=== PATIENT | female | born 1970 | race Caucasian/White ===

== ENCOUNTER 2019-05-08 13:38 | Day surgery (SDC) | payer BC ==
[~2019-05-08] VITALS: Ht 158.8 cm; Wt 73.1 kg
[~2019-05-08 13:38] MED LIST: AMITRIPTYLINE H10 M1 PO; GABAPENTIN100 M1 PO; IBUPROFEN200 M1 PO; NORCO 325 MG-51 TAB PO; TRAMADOL50 MG PO
[2019-05-08] MEDS ORDERED: MACROBID 1100 MG/CAP PO (14:15)
[2019-05-08] MEDS ORDERED: WELLBUTRIN XL300 M1 PO (14:16)
[2019-05-08] MEDS ORDERED: CLARITIN 1010 MG/TAB PO (14:17)
[2019-05-08 14:18] VITALS: BP 105/70; PULSE 87; TEMP 98
[2019-05-08 15:00] VITALS: BP 107/61; PULSE 86; TEMP 97.7
[2019-05-08 15:15] VITALS: BP 105/49; PULSE 73
[2019-05-08 15:30] VITALS: BP 91/46; PULSE 68
[2019-05-08 15:45] VITALS: BP 100/48; PULSE 72
--- NOTE | 2019-05-08 15:52 | NUR ---
PT RETURNED FROM ENDO SUITE PER CART INTO BAY #3. A/OX3, AMBULATED WITH MINIMAL ASSIST BACK INTO ENDO CHAIR. LUNGS CLEAR, HRR AND STRONG. BOWEL SOUNDS PRESENT, WATER OFFERED, , HANH AT BEDSIDE. CALL LIGHT IN REACH, WILL CONT TO MONITOR.
--- NOTE | 2019-05-08 15:58 | NUR ---
PT REQUESTS CHOCOLATE PUDDING AND APPLE JUICE. DENIES PAIN, NAUSEA OR VOMITING. WILL MONITOR.
--- NOTE | 2019-05-08 16:13 | NUR ---
PT TOLERATING FOOD AND FLUIDS WITHOUT C/O PAIN OR NAUSEA. TALKING WITH . WILL MONITOR.
--- NOTE | 2019-05-08 16:15 | NUR ---
PT DISCHARGE INSTRUCTIONS GIVEN, PT VOICES UNDERSTANDING. PT DISCHARGED PER FAMILY VEHICLE, , HANH SOSA.
== END 2019-05-08 16:21 | disposition home or self-care (01) ==
LOC: SDCO 13:38
DX: K63.89 Other specified diseases of intestine (principal); F41.9 Anxiety disorder, unspecified; K59.00 Constipation, unspecified; F32.9 Major depressive disorder, single episode, unspecified; G43.909 Migraine, unspecified, not intractable, without status migrainosus; Z88.1 Allergy status to other antibiotic agents; Z88.2 Allergy status to sulfonamides
CPT/HCPCS: J2250; J2405; J3010

== ENCOUNTER 2019-05-12 13:44 | Day surgery (SDC) | payer BC ==
[~2019-05-12] VITALS: Ht 160 cm; Wt 74.8 kg
[~2019-05-12 13:44] MED LIST changes: +CLARITIN 1010 MG/TAB PO; +MACROBID 1100 MG/CAP PO; +WELLBUTRIN XL300 M1 PO
[2019-05-12 14:08] VITALS: BP 107/52; PULSE 79; TEMP 98.2
[2019-05-12 15:30] VITALS: BP 107/54; PULSE 80; TEMP 98.2
[2019-05-12 15:45] VITALS: BP 104/83; PULSE 76
[2019-05-12 15:50] VITALS: BP 101/68; PULSE 74
== END 2019-05-12 16:16 | disposition home or self-care (01) ==
LOC: SDCO 13:44
DX: K90.0 Celiac disease (principal); R19.7 Diarrhea, unspecified; F41.9 Anxiety disorder, unspecified; G43.909 Migraine, unspecified, not intractable, without status migrainosus; F32.9 Major depressive disorder, single episode, unspecified; Z88.1 Allergy status to other antibiotic agents; Z88.2 Allergy status to sulfonamides
CPT/HCPCS: J2250; J3010; J7030

== ENCOUNTER → 2019-05-28 | Outpatient (CLI) | payer BC | LOC: MC.RAD 13:12 | DX: Z12.31 Encounter for screening mammogram for malignant neoplasm of breast (principal) ==